=== PATIENT | female | born 1955 | race Caucasian/White ===

== ENCOUNTER → 2016-09-30 | Outpatient (CLI) | payer BC | LOC: RAD 14:01 | PROVIDERS: ATTEND Family Medicine | DX: M79.604 Pain in right leg (principal); M21.371 Foot drop, right foot; M48.06 Spinal stenosis, lumbar region | CPT/HCPCS: 72148 ==

== ENCOUNTER → 2016-11-26 | Outpatient (CLI) | payer BC ==
[~2016-11-26] MED LIST: AMLO10TA4 PO; CLIN-78 PO; FLUT10SP INH; HYDR-3702 PO; LOSA1TAB19 PO; LOSA25TA2; MELO-255; OMEP20CA6 PO; norvasc
--- NOTE | 2016-11-26 17:32 | Diagnostic Imaging Report ---
PROCEDURE: US PELVIC (NON OB) TECHNIQUE: Multiple real-time grayscale images were obtained over the pelvis in various projections transabdominally. IMPRESSION: Postmenopausal bleeding. FINDINGS: Uterus measures 7.8 x 3.6 x 5.1 cm with occasional fibroids measuring up to approximately 1 cm in size. Endometrial thickness is normal at 0.5 cm. Neither ovary could be adequately visualized. There is no evidence of free fluid in the pelvis, and no pelvic mass is identified. IMPRESSION: Probable small uterine fibroids. The ovaries were not visualized. Otherwise, no acute abnormality is present. Dictated by: Dictated on workstation # [id number]
== END ==
LOC: RAD 14:43
PROVIDERS: ATTEND Family Medicine
DX: N95.0 Postmenopausal bleeding (principal)
CPT/HCPCS: 76856